=== PATIENT | female | born 1980 | race Caucasian/White ===

== ENCOUNTER 2017-11-07 01:05 | Emergency (ER) | END 2017-11-07 04:59 | disposition home or self-care (01) ==

== ENCOUNTER 2018-06-21 19:30 | Outpatient (CLI) | payer OTHER ==
[~2018-06-21] VITALS: Ht 161.3 cm; Wt 77.6 kg
[~2018-06-21 19:30] MED LIST: CEPH-443 PO; PREN1TAB79 PO
[2018-06-21 19:47] VITALS: Ht 161.3 cm; Wt 77.6 kg
[2018-06-21 19:49] VITALS: BP 119/57; PULSE 90; RESP 17
[2018-06-21] MEDS ORDERED: IRON1TAB78 PO (19:51)
--- NOTE | 2018-06-21 22:54 | TRIAGE ---
OB Triage Datetime Report Generated by CPN: 06/21/2018 22:54 Datetime: 06/21/2018 21:56 Stage of : OB Triage Labor Evaluation Frequency: irregular Monitor Mode: External Duration (sec)2399: 30-50 Quality: Mild Pattern: Normal: <= 5 Contractions in 10 Minutes Resting Tone [place]: Relaxed Heart Rate FHR Baseline Rate: 135 Monitor Mode: External US Variability: Moderate 6-25 bpm Accelerations: 15X15 Decelerations: None Category: Category I Datetime: 06/21/2018 21:15 Stage of : OB Triage Labor Evaluation Frequency: x3 Monitor Mode: External Duration (sec)2399: 60-70 Quality: Mild Pattern: Normal: <= 5 Contractions in 10 Minutes Resting Tone [place]: Relaxed Heart Rate FHR Baseline Rate: 135 Monitor Mode: External US Variability: Moderate 6-25 bpm Accelerations: 15X15 Decelerations: None Category: Category I Datetime: 06/21/2018 20:38 Time of Arrival: 06/21/2018 19:19 EGA: 36.3 Arrived By: Wheelchair Arrived From: Home Chief Complaint: CONTRACTIONS SINCE 06/20 @1730 Movement: Present Contractions: Irregular Time Contractions Began: 06/20/2018 17:30 Contractions: X2/40MINS Rupture of Membranes: Denies Vaginal Discharge: Denies Recent Sexual Intercouse: Denies Abdominal Trauma: Not Applicable Patient Complaints: Contractions; Fever; Other Additional Patient Complaints: BODY ACHES/FEVER/COLD Time Provider Notified: 06/21/2018 20:15 Provider Notified: DR. MENDEZ Initial Plan: EFM, CALL OB Datetime: 06/21/2018 20:15 Labor Evaluation Frequency: X2 Monitor Mode: External Duration (sec)2399: 100-120 Quality: Mild Pattern: Normal: <= 5 Contractions in 10 Minutes Resting Tone [place]: Relaxed Heart Rate FHR Baseline Rate: 135 Monitor Mode: External US Variability: Moderate 6-25 bpm Accelerations: 15X15 Decelerations: None Category: Category I Datetime: 06/21/2018 19:40 Stage of : OB Triage Maternal Assessment Level of Consciousness: Fully Conscious DTR's/Clonus: DTRs 2+; No Clonus Headache: Denies Blurred Vision: No Respiratory Effort: Unlabored; Regular Rhythm; Equal Expansion Breath Sounds, Left: Clear and Equal Breath Sounds, Right: Clear and Equal Nausea/Vomiting: Denies RUQ Epigastric Pain: Denies Lower Extremities Edema: None Degree: None Upper Extremities Edema: None Degree: None Facial Edema: None Temperature Route: Oral Fall Risk Assessment History of Falling: (0) No Secondary Diagnosis: (0) No Ambulatory Aid: (0) Bedrest/Nurse Assist IV Therapy: (0) No Gait: (0) Normal/Bedrest/Immobile Mental Status: (0) Oriented to Own Ability Fall Score: 0 Fall Risk Score Definition: No Risk: No action required Pain Assessment Pain Scale: 5 Pain Presence: Intermittent Pain Type: Contraction Pain Location: Abdomen; Back Pain Goal: 0 Pain Relief Measures: Comfort Measures Datetime: 06/21/2018 19:33 Monitor Mode: External Contraction Comments: APPLIED Monitor Mode: External US Comments: APPLIED
--- NOTE | 2018-06-21 23:20 | PN ---
Triage Information Date/Time 06/21/18 Reason for visit: Uterine contractions Weeks of Gestation 36w3d /Para Diabetes: none Hypertention: none Additional information bodyache and fever ,coughing Objective Vital Signs Date Temp Pulse Resp B/P (MAP) Pulse Ox O2 O2 Flow FiO2 Time Delivery Rate 06/21/18 98.5 90 17 119/57 Room Air 19:49 (77) Heart Rate: 150's Heart Rate Comments CAT I tracing Exam no VE only x2 uc in 40min Results/Medications Results 24 hrs Laboratory Tests Test 06/21/18 19:40 Urine Color YELLOW Urine Clarity CLEAR Urine pH 6.0 Urine Specific [place] 1.019 Urine Ketones TRACE A Urine Nitrite NEGATIVE Urine Bilirubin NEGATIVE Urine Urobilinogen 2+ H Urine Leukocyte Esterase NEGATIVE Urine Hemoglobin NEGATIVE Urine Glucose NEGATIVE Urine Total Protein NEGATIVE Imaging Results BPP 8/ PRAVEENA 13.1 Disposition: to ER for viral syndrome Assessment/Plan A IUP 36w3d R/o PTL NIL flu like syndrome P to ER for further evaluation for flu like syndrome FRANSISCA MENDEZ MD Jun 21, 2018 23:20
== END 2018-06-21 22:23 | disposition home or self-care (01) ==
LOC: OBT 19:30 → L-D 19:31 → OBT 22:23
PROVIDERS: ATTEND Obstetrics & Gynecology
DX: O99.513 Diseases of the respiratory system complicating pregnancy, third trimester (principal); J11.1 Influenza due to unidentified influenza virus with other respiratory manifestations; Z3A.36 36 weeks gestation of pregnancy
CPT/HCPCS: 76818; 81003; 87086; Z7500; G0463

== ENCOUNTER 2018-07-03 19:48 | Outpatient (CLI) | payer OTHER ==
[~2018-07-03] VITALS: Ht 160 cm; Wt 77.0 kg
[~2018-07-03 19:48] MED LIST changes: -CEPH-443 PO; +IRON1TAB78 PO
[2018-07-03 20:21] VITALS: BP 115/60; PULSE 76; RESP 16
--- NOTE | 2018-07-03 21:12 | PN ---
Triage Information Date/Time Reason for visit: Uterine contractions Weeks of Gestation 38 weeks /Para Diabetes: none Hypertention: none Objective Vital Signs Date Temp Pulse Resp B/P (MAP) Pulse Ox O2 O2 Flow FiO2 Time Delivery Rate 07/03/18 98.2 76 16 115/60 Room Air 20:21 (78) Heart Rate: 120's Heart Rate Comments Reactive Exam Cervix 1 cm Results/Medications Results 24 hrs Laboratory Tests Test 07/03/18 19:45 Urine Color YELLOW Urine Clarity CLEAR Urine pH 5.0 Urine Specific [place] 1.010 Urine Ketones 1+ H Urine Nitrite NEGATIVE Urine Bilirubin NEGATIVE Urine Urobilinogen NEGATIVE Urine Leukocyte Esterase NEGATIVE Urine Hemoglobin NEGATIVE Urine Glucose NEGATIVE Urine Total Protein NEGATIVE Disposition: Discharge Assessment/Plan Patient reports good movement Not in labor Follow up in clinic on07/04/2018. REGAN VÁSQUEZ MD Jul 03, 2018 21:12
--- NOTE | 2018-07-03 22:21 | TRIAGE ---
OB Triage Datetime Report Generated by CPN: 07/03/2018 22:21 Datetime: 07/03/2018 21:04 Stage of : OB Triage Labor Evaluation Frequency: 5-10 Monitor Mode: External Quality: Mild Pattern: Normal: <= 5 Contractions in 10 Minutes Resting Tone [place]: Relaxed Heart Rate FHR Baseline Rate: 130 Monitor Mode: External US FHR Baseline Changes: No Baseline Change Variability: Moderate 6-25 bpm Accelerations: 15X15 Decelerations: None Category: Category I Vaginal Exam Dilatation (cms): 1.0 Effacement (%): 50 Station: -2 Exam By: Dr Bragg Membrane Status: Intact Vaginal Bleeding: None Cervix, Consistency: Soft Cervix, Position: Posterior Presentation 'A': Cephalic Datetime: 07/03/2018 20:04 Stage of : OB Triage Maternal Assessment Level of Consciousness: Fully Conscious Headache: Denies Blurred Vision: No Respiratory Effort: Unlabored Nausea/Vomiting: Denies RUQ Epigastric Pain: Denies Facial Edema: None Monitor Mode: External Resting Tone [place]: Relaxed Heart Rate FHR Baseline Rate: 130 Monitor Mode: External US Pain Assessment Pain Scale: 6 Pain Presence: Intermittent Pain Type: Contraction Pain Location: Abdomen Datetime: 07/03/2018 20:00 Time of Arrival: 07/03/2018 19:35 EGA: 38.1 Arrived By: Ambulatory Arrived From: Home Chief Complaint: c/o irreg ucs Movement: Present Contractions: Irregular Time Contractions Began: 07/03/2018 13:00 Contractions: q6-10 Rupture of Membranes: Denies Vaginal Bleeding: None Vaginal Discharge: Denies Recent Sexual Intercouse: Denies Abdominal Trauma: Not Applicable Patient Complaints: Contractions Time Provider Notified: 07/03/2018 20:00 Provider Notified: Dr Bragg Initial Plan: EFM,UA,SVE Datetime: 06/21/2018 20:38 EGA: 36.3 Datetime: 06/21/2018 19:40 Fall Risk Assessment Fall Score: 0 Fall Risk Score Definition: No Risk: No action required
== END 2018-07-03 21:15 | disposition home or self-care (01) ==
LOC: OBT 19:48 → L-D 19:49 → OBT 21:15
PROVIDERS: ATTEND Obstetrics & Gynecology
DX: O47.1 False labor at or after 37 completed weeks of gestation (principal); Z3A.38 38 weeks gestation of pregnancy
CPT/HCPCS: 81003; Z7500; G0463

== ENCOUNTER 2018-07-06 13:21 | Outpatient (CLI) | payer OTHER ==
[~2018-07-06] VITALS: Ht 160 cm; Wt 77.0 kg
[2018-07-06 13:56] VITALS: BP 115/56; PULSE 75; RESP 18; Ht 160 cm; Wt 77.0 kg
[2018-07-06] MEDS ORDERED: ACETAMINOPHEN 325 MG TAB PO ONE (15:30)
--- NOTE | 2018-07-06 16:46 | TRIAGE ---
OB Triage Datetime Report Generated by CPN: 07/06/2018 16:45 Datetime: 07/06/2018 16:21 Stage of : OB Triage Vaginal Exam Dilatation (cms): 1.0 Effacement (%): 70 Station: -2 Exam By: S LUIS A Vaginal Bleeding: None Cervix, Consistency: Soft Cervix, Position: Posterior Presentation 'A': Cephalic Datetime: 07/06/2018 15:53 Labor Evaluation Frequency: 0 Monitor Mode: External Pattern: Normal: <= 5 Contractions in 10 Minutes Resting Tone [place]: Relaxed Heart Rate FHR Baseline Rate: 125 Monitor Mode: External US Variability: Moderate 6-25 bpm Accelerations: 10X10 Decelerations: None Category: Category I Pain Assessment Pain Scale: 2 Pain Presence: Constant Pain Type: Pressure Pain Location: Perineum Pain Goal: 3 Pain Relief Measures: Comfort Measures Datetime: 07/06/2018 15:23 Stage of : OB Triage Datetime: 07/06/2018 14:42 Labor Evaluation Frequency: 0 Monitor Mode: External Pattern: Normal: <= 5 Contractions in 10 Minutes Resting Tone [place]: Relaxed Heart Rate FHR Baseline Rate: 135 Monitor Mode: External US Variability: Moderate 6-25 bpm Accelerations: 10X10 Decelerations: None Category: Category I Pain Assessment Pain Scale: 6 Pain Presence: None/Denies Pain Type: N/A Pain Goal: 3 Pain Relief Measures: Comfort Measures Datetime: 07/06/2018 13:53 EGA: 38.4 Datetime: 07/06/2018 13:39 Stage of : OB Triage Assessment Type: Triage Maternal Assessment Level of Consciousness: Fully Conscious DTR's/Clonus: DTRs 2+; No Clonus Headache: Denies Blurred Vision: No Respiratory Effort: Unlabored; Regular Rhythm; Equal Expansion Breath Sounds, Left: Clear and Equal Breath Sounds, Right: Clear and Equal Nausea/Vomiting: Denies RUQ Epigastric Pain: Denies Facial Edema: None Temperature Route: Axillary Fall Risk Assessment History of Falling: (0) No Secondary Diagnosis: (0) No Ambulatory Aid: (0) Bedrest/Nurse Assist IV Therapy: (0) No Gait: (0) Normal/Bedrest/Immobile Mental Status: (0) Oriented to Own Ability Fall Score: 0 Fall Risk Score Definition: No Risk: No action required Labor Evaluation Frequency: 0 Monitor Mode: External Pattern: Normal: <= 5 Contractions in 10 Minutes Resting Tone [place]: Relaxed Heart Rate FHR Baseline Rate: 120 Monitor Mode: External US Variability: Moderate 6-25 bpm Decelerations: None Category: Category I Pain Assessment Pain Scale: 8 Pain Presence: Intermittent Pain Type: Cramping; Contraction Pain Location: Abdomen; Perineum Pain Goal: 3 Pain Relief Measures: Comfort Measures Datetime: 07/06/2018 13:37 Time of Arrival: 07/06/2018 13:14 EGA: 38.4 Arrived By: Ambulatory Arrived From: Dr. Dunn Chief Complaint: REFERRED FROM CLINIC FOR UC'S IN OFFICE, DENIES BLEEDING, OR LEAKING Movement: Decreased Contractions: Irregular Contractions: 5-7 Rupture of Membranes: Denies Vaginal Bleeding: None Vaginal Discharge: Denies Recent Sexual Intercouse: Denies Abdominal Trauma: Not Applicable Patient Complaints: Contractions; Cramping Time Provider Notified: 07/06/2018 16:21 Provider Notified: DR. MENDEZ Initial Plan: MONITOR, BPP Datetime: 07/03/2018 20:00 EGA: 38.1 Datetime: 06/21/2018 20:38 EGA: 36.3 Datetime: 06/21/2018 19:40 Fall Score: 0 Fall Risk Score Definition: No Risk: No action required
--- NOTE | 2018-07-06 17:08 | PN ---
Triage Information Date/Time 07/06/18 Reason for visit: Uterine contractions Weeks of Gestation 38w4d /Para A3 Diabetes: none Hypertention: none Additional information headache relieved with tylenol 650mg Objective Vital Signs Date Temp Pulse Resp B/P (MAP) Pulse Ox O2 O2 Flow FiO2 Time Delivery Rate 07/06/18 98.3 75 18 115/56 13:56 (75) Heart Rate: 140's Contractions: 6-10 Minutes Apart Exam VE /70/-3 same as previous exam Results/Medications Medications tylenol 650mg Imaging Results BPP 8/8 PRAVEENA 12.6 Disposition: Discharge Assessment/Plan A IUP 38w4d NIL headache resolved P discharge home with routine labor instructions FRANSISCA MENDEZ MD Jul 06, 2018 17:08
== END 2018-07-06 16:35 | disposition home or self-care (01) ==
LOC: OBT 13:21 → L-D 13:22 → OBT 16:35
PROVIDERS: ATTEND Obstetrics & Gynecology
DX: O62.9 Abnormality of forces of labor, unspecified (principal); O09.523 Supervision of elderly multigravida, third trimester; Z3A.38 38 weeks gestation of pregnancy
CPT/HCPCS: 76818; Z7500; Z7610; G0463

== ENCOUNTER 2018-07-11 09:10 | Inpatient (IN) | payer OTHER ==
[~2018-07-11] VITALS: Ht 160 cm; Wt 78.2 kg
[2018-07-11 09:19] VITALS: Ht 160 cm; Wt 78.2 kg
[2018-07-11 09:20] VITALS: BP 129/60
[2018-07-11] MEDS ORDERED: ONDANSETRON 4 MG INJ IV STA (10:22)
[2018-07-11] MEDS ORDERED: OXYTOCIN 30 UNITS/LR 500 ML IV PRN (10:30)
[2018-07-11] MEDS ORDERED: CARBOPROST 250 MCG INJ IM PRN (10:30)
[2018-07-11] MEDS ORDERED: OXYTOCIN 30 UNITS/LR 500 ML IV SCH ×2 (10:30)
[2018-07-11] MEDS ORDERED: MISOPROSTOL 200 MCG TAB PR PRN (10:30)
[2018-07-11] MEDS ORDERED: LIDOCAINE 1% (MPF) 30 ML INJ INJ PRN (10:30)
[2018-07-11] MEDS ORDERED: BUTORPHANOL 2 MG INJ IV PRN (10:30)
[2018-07-11] MEDS ORDERED: METHYLERGONOVINE 0.2 MG INJ IM PRN (10:30)
[2018-07-11] MEDS: LACTATED RINGER'S 1,000 ML IV SCH ×4 (10:47→19:43)
--- NOTE | 2018-07-11 10:47 | TRIAGE ---
OB Triage Datetime Report Generated by CPN: 07/11/2018 10:46 Datetime: 07/11/2018 10:45 Category: Category III Datetime: 07/11/2018 10:34 Stage of : OB Triage Labor Evaluation Frequency: 0 Monitor Mode: External Pattern: Normal: <= 5 Contractions in 10 Minutes Resting Tone [place]: Relaxed Heart Rate FHR Baseline Rate: 135 Monitor Mode: External US Variability: Moderate 6-25 bpm Accelerations: 15X15 Decelerations: None Category: Category I Datetime: 07/11/2018 09:48 Vaginal Exam Dilatation (cms): 3.0 Effacement (%): 50 Station: -2 Exam By: DR. LANCASTER Datetime: 07/11/2018 09:16 Time of Arrival: 07/11/2018 09:03 EGA: 39.2 Arrived By: Ambulatory Arrived From: Home Chief Complaint: ABD PAIN, VOMMITIING X3 THIS MORNING AT 0700 Movement: Present Contractions: Denies/Absent Rupture of Membranes: Denies Vaginal Bleeding: None Vaginal Discharge: Denies Recent Sexual Intercouse: Denies Abdominal Trauma: Not Applicable Patient Complaints: Vomiting Time Provider Notified: 07/11/2018 09:48 Provider Notified: DR. EDWARDS Initial Plan: EFM, CALL MD Datetime: 07/11/2018 09:13 Stage of : OB Triage Assessment Type: Triage Maternal Assessment Level of Consciousness: Fully Conscious DTR's/Clonus: DTRs 2+; No Clonus Headache: Denies Blurred Vision: No Respiratory Effort: Unlabored; Regular Rhythm; Equal Expansion Breath Sounds, Left: Clear and Equal Breath Sounds, Right: Clear and Equal Nausea/Vomiting: Denies RUQ Epigastric Pain: Denies Lower Extremities Edema: None Degree: None Upper Extremities Edema: None Degree: None Facial Edema: None Temperature Route: Oral Fall Risk Assessment History of Falling: (0) No Secondary Diagnosis: (0) No Ambulatory Aid: (0) Bedrest/Nurse Assist IV Therapy: (0) No Gait: (0) Normal/Bedrest/Immobile Mental Status: (0) Oriented to Own Ability Fall Score: 0 Fall Risk Score Definition: No Risk: No action required Monitor Mode: External (Annotations: INITIAL PLACEMENT ) Monitor Mode: External US (Annotations: INITIAL PLACMEMENT) Pain Assessment Pain Scale: 8 Pain Presence: Intermittent Pain Type: Ache Pain Location: Abdomen Pain Goal: 0 Pain Relief Measures: Comfort Measures Datetime: 07/06/2018 13:53 EGA: 38.4 Datetime: 07/06/2018 13:39 Fall Score: 0 Fall Risk Score Definition: No Risk: No action required Datetime: 07/06/2018 13:37 EGA: 38.4 Datetime: 07/03/2018 20:00 EGA: 38.1 Datetime: 06/21/2018 20:38 EGA: 36.3 Datetime: 06/21/2018 19:40 Fall Score: 0 Fall Risk Score Definition: No Risk: No action required
[2018-07-11] MEDS ORDERED: MISOPROSTOL 50 MCG CAPSULE PO ONE (11:00)
--- NOTE | 2018-07-11 17:57 | PREAC ---
Date/Time of Note Date/Time of Note DATE: 07/11/18 TIME: 17:48 Anesthesia Eval and Record Evaluation Time Pre-Procedure Interview DATE: 07/11/18 TIME: 17:48 Age 38 Sex female NPO: 8 hrs Preoperative diagnosis labor pain Planned procedure epidural Past Medical History Past Medical History: Includes : Gestational age: (38.4) Surgery & Anesthesia Issues No known issue Meds Anticoagulation: No Beta Mikala within 24 hr: No Reason Beta Mikala not given: Pt. not on B-Mikala Reported Medications Iron,Carbonyl/Vit C/Vit B12/Fa (IRON 100 PLUS TABLET) 1 Each Tablet, 1 EACH PO, TAB 06/21/18 Vit W-Ca,Fe,FA(<1 mg) ( Vitamins) 1 Each Tablet, 1 EACH PO, TAB 09/09/15 Current Medications Lactated Ringer's 1,000 ml @ 125 mls/hr Q8H IV Last administered on 07/11/18at 14:00; Admin Dose 125 MLS/HR; Start 07/11/18 at 10:22 Butorphanol Tartrate (Stadol) 2 mg Q2H PRN IV .PAIN; Start 07/11/18 at 10:30 Lidocaine (Xylocaine 1% (Mpf)) 30 ml ONCE PRN INJ .EPISIOTOMY; Start 07/11/18 at 10:30 Oxytocin/Lactated Ringer's 500 ml @ 500 mls/hr ONCE POST IV ; Start 07/11/18 at 10:30 Oxytocin/Lactated Ringer's 500 ml @ 125 mls/hr POST IV ; Start 07/11/18 at 10:30 Oxytocin/Lactated Ringer's 500 ml @ 0 mls/hr ONCE PRN IV .VAGINAL BLEEDING; Start 07/11/18 at 10:30 Methylergonovine Maleate (Methergine) 0.2 mg ONCE PRN IM .VAGINAL BLEEDING; Start 07/11/18 at 10:30 Carboprost Tromethamine (Hemabate) 250 mcg ONCE PRN IM .VAGINAL BLEEDING; Start 07/11/18 at 10:30 Misoprostol (Cytotec) 1,000 mcg ONCE PRN [place] .VAGINAL BLEEDING; Start 07/11/18 at 10:30 Meds reviewed: Yes Allergies Coded Allergies: Penicillins (Verified Allergy, Unknown, swelling, 07/03/18) aspirin (Verified Allergy, Unknown, rash, 07/03/18) Allergies Reviewed: Yes Labs/Studies Labs Reviewed: Reviewed by anesthesiologist Result Diagram: 07/11/18 1036 Laboratory Tests 07/11/18 10:36 Blood Bank Test 07/11/18 10:36 Antibody Screen NEGATIVE Blood Type O NEGATIVE Rh Immune Globulin Candidate NO test: Positive Studies: ECG (n/a), CXR (n/a) Pre-procedure Exam Last vitals Vital Signs Date Temp Pulse Resp B/P (MAP) Pulse Ox O2 O2 Flow FiO2 Time Delivery Rate 07/11/18 98.0 129/60 09:20 (83) Airway: Adequate mouth opening Mallampati: Mallampati I Teeth: Normal Lung: Normal Heart: Normal ASA Physical Status ASA physical status: 2 Emergency: None Planned Anesthetic Neuraxial: Epidural Pre-operative Attestations Prior to commencing anesthesia and surgery, the patient was re-evaluated, there was verification of: *The patient's identity *The results of appropriate recent lab work and preoperative vital signs *The above evaluation not changing prior to induction *Anesthetic plan, risk benefits, alternative and complications discussed with patient/family; questions answered; patient/family understands, accepts and wishes to proceed. JONY BROWN MD Jul 11, 2018 17:57
[2018-07-11] MEDS ORDERED: FENTAnyl 2MCG/ML-ROPIV 0.2% 100 ML ONE (18:41)
--- NOTE | 2018-07-11 21:46 | HP ---
Date/Time of Note Date/Time of Note DATE: 07/11/18 TIME: 21:43 OB - History Hx of Present Free Text/Dictation 38-year-old 9 para 5035 with single intrauterine at 39 weeks and 2 days with a RAUL of 07/16/2018 complaining of lower abdominal pain and vomiting. She states good movement. She denies shortness of breath, chest pain, headache, visual changes, vaginal bleeding or LOF. Chief Complaint: Lower abdominal pain and vomiting Estimated Due Date: Jul 16, 2018 : 9 Para: 5 Spontaneous : 3 Therapeutic : 0 Care: Good Care Ultrasounds: Normal mid trimester US Obstetrical Complications: None Medical Complications: None Past Family/Social History * Past Medical, Surgical, Family and Obstetric Histories reviewed from chart. Blood Type: O- Rubella: immune RPR/VDRL: Negative GBS Status: Negative HBsAG: Negative OB Admission Exam Vital Signs Vital Signs Vital Signs Date Temp Pulse Resp B/P (MAP) Pulse Ox O2 O2 Flow FiO2 Time Delivery Rate 07/11/18 98.0 129/60 09:20 (83) Physical Exam HEENT: WNL Heart: Rhythm Normal Lungs: Clear Abdomen: WNL Extremities: Normal Reflexes: Normal Cervical Dilatation: 1cm Effacement: 50% Station: -3 Membranes: Intact Heart Rate: 130's Accelerations: Accelerations Present Decelerations: No Decelerations Varibility: Moderate Contractions on Admission: >10 Minutes Apart Last 72 hours Lab Results CBC & BMP 07/11/18 10:36 OB Assessment/Plan Other plan: 38 years old 9 para 5035 at 39 weeks and 2 days with lower abdominal pain and vomiting - FHR: No sign of metabolic acidosis- Category I - Continuous EFM, toco - CBC, blood type and screen - Analgesia options with R/B/A discussed in detail with patient - Epidural per patient request - Please see the orders - O Neg/Rubella: Immune - GBS: Negative Admission, procedures, expectations, risks and possible complications have been discussed in detail with the patient. Risk of vaginal delivery including but not limited to bleeding, infection, cervical laceration, placental retention, injury to fetus, blood transfusion, blood transfusion related infection, risk of anesthesia, adhesion, cervical laceration, episiotomy/laceration, possible delivery with risk of bleeding, infection, injury to other organs (bowel, bladder, ureter, vessels, nerves), injury to fetus, blood transfusion, blood transfusion related infection, risk of anesthesia, scar and hernia formation, needs for future , removal of uterus or any other indicated surgery discussed with the patient. She expressed understanding and repeats the risks. All of her questions were answered. She signed the informed consent. PHYSICIAN'S VERIFICATION OF INFORMED CONSENT The patient was counseled regarding the procedure, its indications, risks, potential complications and alternatives and any questions were answered. Consent was obtained. PLANNED PROCEDURE/TREATMENT: Vaginal delivery, episiotomy, repair of laceration possible delivery YAKOV EDWARDS Jul 11, 2018 21:46
--- NOTE | 2018-07-11 21:49 | LDN ---
Date/Time of Note Date/Time of Note DATE: 07/11/18 TIME: 21:46 Delivery Summary 38-year-old single intrauterine at 39 weeks and 2 days delivered a viable male over 1cm first-degree laceration at fourchette. Nose and mouth suctioned. Rest of body delivered. Cord clamped and cut after stopping pulsation. Placenta delivered intact and spontaneously with three- vessel cord. Laceration repaired with 3-0 chromic SH needle. Patient tolerated procedure well. Time of delivery 21:13 Weight 3240 g - 7 pound 2 ounces Height 20 inches 9 at 1 minutes and 9 at 5 minutes EBL 300 mL Weeks of Gestation 39 weeks and 2 days Placenta Delivered: Spontaneously Meconium: none Episiotomy: No Estimated blood loss: 300 Sponge & Needle done & correct: Yes All needle counts correct: Yes Any foreign bodies felt in the: No Delivery Information Sex Infant Sex: male Apgars 1 Minute: 9 5 Minute: 9 10 Minute: 10 Suctioning Nose & mouth suctioned at miche[place]: Yes Umbilical Cord Umbilical cord with: 3 Vessels Cord presentations: no nuchal cord Cord Blood was obtained: Yes Mother & Baby Disposition Disposition Mom & Baby to Maternity; Good: Yes YAKOV EDWARDS Jul 11, 2018 21:49
[2018-07-11 23:25] VITALS: BP 122/54; PULSE 78; RESP 18
[2018-07-11] MEDS ORDERED: LACTATED RINGER'S 1,000 ML IV* SCH (23:50)
[2018-07-11] MEDS ORDERED: DEXTROSE 5%-LR 1,000 ML IV SCH (23:50)
[2018-07-12] MEDS ORDERED: SENNA/DOCUSATE NA (8.6MG/50MG) TAB PO PRN
[2018-07-12] MEDS ORDERED: METHYLERGONOVINE 0.2 MG INJ IM PRN
[2018-07-12] MEDS ORDERED: ACETAMINOPHEN 325 MG TAB PO PRN
[2018-07-12] MEDS ORDERED: OXYTOCIN 30 UNITS/LR 500 ML IV PRN
[2018-07-12] MEDS ORDERED: CARBOPROST 250 MCG INJ IM PRN
[2018-07-12] MEDS ORDERED: DIPHENHYDRAMINE 50 MG INJ IV PRN
[2018-07-12] MEDS ORDERED: DIBUCAINE 1% 30 GM OINT TOP PRN
[2018-07-12] MEDS ORDERED: OXYCODONE/ASPIRIN (4.88/325) TAB PO PRN
[2018-07-12] MEDS ORDERED: MISOPROSTOL 200 MCG TAB PR PRN
[2018-07-12] MEDS ORDERED: ZOLPIDEM 5 MG TAB PO PRN
[2018-07-12] MEDS ORDERED: ONDANSETRON 4 MG INJ IV PRN
[2018-07-12] MEDS ORDERED: WITCH HAZEL/GLYCERIN PAD PR PRN
[2018-07-12] MEDS ORDERED: BENZOCAINE 20% 56 ML SPRAY TOP PRN
[2018-07-12] MEDS ORDERED: LANOLIN HPA 1 PKT TOP PRN
[2018-07-12] MEDS: IBUPROFEN 600 MG TAB PO SCH ×5 (00:14→23:36)
[2018-07-12 00:25] VITALS: BP 115/49; PULSE 75; RESP 19
[2018-07-12 04:00] VITALS: BP 101/49; PULSE 76; RESP 18
[2018-07-12 07:30] VITALS: BP 114/52; PULSE 72; RESP 16
--- NOTE | 2018-07-12 10:15 | PN ---
Date/Time of Note Date/Time of Note DATE: 07/12/18 TIME: 10:13 OB Subjective Subjective Subjective PPD# 1 Patient is doing well. She denies nausea, vomiting, shortness of breath, chest pain, headache. She has been ambulating without difficulty, tolerating regular diet. Pain is well controlled on current medications OB Objective Objective Objective VS - Last 72 Hours, by Label Date Temp Pulse Resp B/P (MAP) Pulse Ox O2 O2 Flow FiO2 Time Delivery Rate 07/12/18 98.2 72 16 114/52 Room Air 07:30 (72) 07/12/18 98.6 76 18 101/49 Room Air 04:00 (66) 07/12/18 98.9 75 19 115/49 Room Air 00:25 (71) 07/11/18 98.2 78 18 122/54 Room Air 23:25 (76) 07/11/18 98.0 129/60 09:20 (83) General: AAO X 3, comfortable, NAD, appropriate mood and affect. ABD: +BS. Soft, non-tender. Uterus 2 cm below umbilicus Flank: No CVA tenderness (B/L) LE: Mild edema. No clubbing, cyanosis, thigh or calf tenderness (B/L). Homans 'sign is negative OB Assessment/Plan Other plan: 38-year-old s/p normal vaginal delivery at 39 weeks and 2 days. PPD#1 - AF, VSS - Contraception methods with R/B/A/FR discussed - Continue care - Discharge home tomorrow - Rx and instruction given - Follow up in 2 and 6 weeks at clinic YAKOV EDWARDS Jul 12, 2018 10:15
--- NOTE | 2018-07-12 10:16 | DS ---
Date/Time of Note Date/Time of Note DATE: 07/12/18 TIME: 10:15 Obstetrical Discharge Record Final Diagnosis Final Diagnosis: Term delivered Other Final Diagnosis 38-year-old s/p normal vaginal delivery at 39 weeks and 2 days. PPD#1. course was unremarkable. She is ambulating and tolerating regular diet. She is voiding without difficulty. Pain is controlled on current medication. - AF, VSS - Contraception methods with R/B/A/FR discussed - Continue care - Discharge home tomorrow - Rx and instruction given - Follow up in 2 and 6 weeks at clinic Complications Augmentation: Yes Condition on Discharge Physical Assessment Voiding: Yes Bowel Movement: Yes Breast: Soft, non-tender Fundus: Firm Calf Tenderness: No Patient Condition: Stable YAKOV EDWARDS Jul 12, 2018 10:16
[2018-07-12 11:57] VITALS: BP 118/62; PULSE 72; RESP 20
[2018-07-12 15:35] VITALS: BP 119/58; PULSE 75; RESP 18
[2018-07-12 19:40] VITALS: BP 107/64; PULSE 78; RESP 19
[2018-07-13 05:30] VITALS: BP 119/62; PULSE 67; RESP 19
[2018-07-13] MEDS: IBUPROFEN 600 MG TAB PO SCH ×2 (05:35→12:10)
[2018-07-13 08:00] VITALS: BP 109/59; PULSE 73; RESP 18
[2018-07-13] MEDS ORDERED: MEASLES,MUMPS,RUBELLA VACCINE INJ SC* ONE (09:00)
[2018-07-13] MEDS ORDERED: DIPHTH/TET/ACEL PERTUSS (ADULT) 0.5 ML VIAL IM* ONE (09:00)
--- NOTE | 2018-07-13 17:26 | PAC ---
Date/Time of Note Date/Time of Note DATE: 07/13/18 TIME: 17:26 Post-Anesthesia Notes Post-Anesthesia Note Last documented vital signs Vital Signs Date Temp Pulse Resp B/P (MAP) Pulse Ox O2 O2 Flow FiO2 Time Delivery Rate 07/13/18 98.0 73 18 109/59 Room Air 08:00 (76) Activity: WNL Respiratory function: WNL Cardiovascular function: WNL Mental status: Baseline Pain reasonably controlled: Yes Hydration appropriate: Yes Nausea/Vomiting absent: No JONY BROWN MD Jul 13, 2018 17:26
--- NOTE | 2018-07-16 11:26 | DELSUM ---
Delivery Summary A-C Datetime Report Generated by CPN: 07/16/2018 11:20 DELIVERY PERSONNEL Redevelopment Manager: Kashman, Heidi MATERNAL INFORMATION Delivery Anesthesia: Epidural Medications in Delivery: Pitocin, Methergine Delivery QBL (ml): 300 Placenta Cultured: No Maternal Complications: None LABOR SUMMARY EDC: 07/16/2018 00:00 No. Babies in Womb: 1 Attempted: No Labor Anesthesia: Epidural LABOR INFORMATION Reason for Induction: Other Onset of Labor: 07/11/2018 13:39 Complete Dilatation: 07/11/2018 20:09 Cervical Ripening Agents: Cytotec @ Oxytocin: N/A Group B Beta Strep: Negative Antibiotics # of Doses: 0 Steroids Given: None Reason Steroids Not Administered: Not Applicable MEMBRANES Membranes Rupture Method: Artificial Rupture of Membranes: 07/11/2018 20:08 Length of Rupture (hr): 1.08 Amniotic Fluid Color: Clear Amniotic Fluid Amount: Moderate Amniotic Fluid Odor: None STAGES OF LABOR Stage 1 hr: 6 Stage 1 min: 30 Stage 2 hr: 1 Stage 2 min: 4 Stage 3 hr: 0 Stage 3 min: 3 Total Time in Labor hr: 7 Total Time in Labor min: 37 VAGINAL DELIVERY Episiotomy: None Laceration Extension: First Degree Laceration Type: Perineal Laceration Repair: Not Applicable Initial Vag Sponge Count: 10 Final Vag Sponge Count: 10 Initial Vag Sharps Count: 1 Final Vag Sharps Count: 2 Sponge Count Correct: Yes; Vaginal Sweep Performed Sharps Count Correct: Yes CSECTION DELIVERY CSection Incision: Lower Uterine Transverse BABY A INFORMATION Delivery Date/Time: 07/11/2018 21:13 Method of Delivery: Vaginal Born in Route : No : N/A Forceps: N/A Vacuum Extraction: N/A Shoulder Dystocia : N/A SHOULDER DYSTOCIA BABY A Delivery Date/Time: 07/11/2018 21:13 PRESENTATION/POSITION BABY A Presentation: Cephalic Cephalic Presentation: Vertex Breech Presentation: N/A PLACENTA INFORMATION BABY A Placenta Delivery Time : 07/11/2018 21:16 Placenta Method of Delivery: Expressed Placenta Status: Delivered SCORES BABY A Heart Rate 1 min: >100 bpm Resp Effort 1 min: Good Cry Reflex Irritability 1 min: Cough/Sneeze/Pulls Away Muscle Tone 1 min: Active Motion Color 1 min: Body Winters, Extremit Blue Resuscitation Effort 1 min: Tactile Stimulation SCORE 1 MIN: 9 Heart Rate 5 min: >100 bpm Resp Effort 5 min: Good Cry Reflex Irritability 5 min: Cough/Sneeze/Pulls Away Muscle Tone 5 min: Active Motion Color 5 min: Body Winters, Extremit Blue Resuscitation Effort 5 min: N/A SCORE 5 MIN: 9 INFANT INFORMATION BABY A Gestational Age at Delivery: 39.2 Gestational Status: Full Term- 39- 40.6 Weeks Outcome : Liveborn Infant Condition : Stable Sex: Male IDENTIFICATION/MEDS BABY A ID Band Number: [id number] ID Band Location: Right Leg; Left Arm Sensor Applied: Yes Sensor Number: [id number] Sensor Location : Cord Clamp Vitamin K Given : Not Given Erythromycin Given: Not Given WEIGHT/LENGTH BABY A Birthweight (gm): 3240 Infant Weight (lb): 7 Weight (oz): 2 Length (in): 20.00 Infant Length (cm): 50.80 CORD INFORMATION BABY A No. Cord Vessels: 3 Nuchal Cord : N/A Cord Blood Taken: Yes Suction: Mouth; Nose ASSESSMENT BABY A Complications: None Physical Findings at Delivery: Within Normal Limits Infant Respirations: Appears Normal Right Of Way Man/ALS Called : No Care By: ULYSSES Lundy Transferred To: Remains with Mother
== END 2018-07-13 15:33 | disposition home or self-care (01) | DRG 807 ==
LOC: OBT 09:10 → L-D 09:11 → OBT 10:15 → PP1 23:24
PROVIDERS: ADMIT Obstetrics & Gynecology; ATTEND Obstetrics & Gynecology
PROC: 10E0XZZ Delivery of Products of Conception, External Approach (ICD-10-PCS; principal; 2018-07-11)
PROC: 0HQ9XZZ Repair Perineum Skin, External Approach (ICD-10-PCS; 2018-07-11)
PROC: 4A1HXCZ Monitoring of Products of Conception, Cardiac Rate, External Approach (ICD-10-PCS; 2018-07-11)
DX: O70.0 First degree perineal laceration during delivery (principal); Z37.0 Single live birth; Z3A.39 39 weeks gestation of pregnancy; Z88.0 Allergy status to penicillin
CPT/HCPCS: 62319; 76815; 81001; 85025; 85610; 85730; 86592; 86850; 86900; 86901; 87340; G0463; J2210; J2590; J3010; J7120; J7121

== ENCOUNTER 2018-07-30 21:07 | Emergency (ER) | payer OTHER ==
[~2018-07-30] VITALS: Ht 160 cm; Wt 71.4 kg
[2018-07-30 21:20] VITALS: Ht 160 cm; Wt 71.4 kg
[2018-07-31] MEDS ORDERED: SOD CHLORIDE 0.9% 1,000 ML IV STA (00:03)
[2018-07-31] MEDS ORDERED: ACETAMINOPHEN 500 MG TAB PO STA (00:03)
[2018-07-31] MEDS ORDERED: ACET500C5 PO (03:25)
--- NOTE | 2018-07-31 03:26 | ERD ---
ER Documentation Chief Complaint Chief Complaint fever and headache since 2pm today. +vomiting. HPI Patient is a 38-year-old female, G6, P6, who presents the ER for concerns of fevers, headache, generalized body aches since 2 PM today. Patient describes her pain to be throughout her head. Patient denied any blurry vision or photo phobia. Patient states she does have a mild dry cough. She denies abdominal pain or vomiting. Denies any neck pain or neck stiffness. Please note extensive triage note. Of note, patient gave to her child vaginally approximately 20 days ago. Patient reports occasional vaginal spotting. She denies any large amounts of blood passage. Patient does report intermittent pelvic pain. Patient denies any dysuria, frequency, urgency. Patient does not have sick contacts. Patient is and states that she does not which medications she can take. Patient denies breast pain, redness or discharge. Patient denies history of preeclampsia. OBGYN = Dr. Elder, [facility]. ROS All systems reviewed and are negative except as per history of present illness. Medications Home Meds Active Scripts Acetaminophen* (Tylophen*) 500 Mg Capsule, 1 CAP PO Q6H PRN for PAIN AND OR ELEVATED TEMP, #20 CAP Prov:SOLO PINEDA PA-C 07/31/18 Reported Medications Iron,Carbonyl/Vit C/Vit B12/Fa (IRON 100 PLUS TABLET) 1 Each Tablet, 1 EACH PO, TAB 06/21/18 Vit W-Ca,Fe,FA(<1 mg) ( Vitamins) 1 Each Tablet, 1 EACH PO, TAB 09/09/15 Allergies Allergies: Coded Allergies: Penicillins (Verified Allergy, Unknown, swelling, 07/03/18) aspirin (Verified Allergy, Unknown, rash, 07/03/18) PMhx/Soc Medical and Surgical Hx: pt denies Medical Hx, pt denies Surgical Hx History of Surgery: No Anesthesia Reaction: No Hx Neurological Disorder: No Hx Respiratory Disorders: No Hx Cardiac Disorders: No Hx Psychiatric Problems: No Hx Miscellaneous Medical Probl: No Hx Alcohol Use: No Hx Substance Use: No Hx Tobacco Use: No Smoking Status: Never smoker FmHx Family History: No diabetes Physical Exam Vitals Vital Signs Date Temp Pulse Resp B/P (MAP) Pulse Ox O2 O2 Flow FiO2 Time Delivery Rate 07/31/18 98.2 83 18 105/50 99 Room Air 03:39 (68) 07/30/18 101.3 108 16 117/57 100 21:20 (77) Physical Exam GENERAL: Well-developed, well-nourished female. Appears in no acute distress. HEAD: Normocephalic, atraumatic. No deformities or ecchymosis. EYE: Pupils equal, round, and reactive to light. EOMs intact. No conjunctival erythema. No eye discharge. ENT: External ear without any masses or tenderness. Auditory canals clear bilaterally. TM visualized bilaterally, non-erythematous, non-bulging. Nasal mucosa pink with no discharge. Oropharynx is pink without any tonsillar erythema or exudates. No uvula deviation. No kissing tonsils. NECK: Supple. No meningismus. Normal ROM of the neck. LUNG: Clear to auscultation bilaterally. No rhonchi, wheezing, rales or coarse breath sounds. HEART: Regular rate and rhythm. No murmurs, rubs or gallops. ABDOMEN: Soft, nondistended. Tender to palpation in the suprapubic region. No rebound tenderness, no guarding. (-) McBurney's point tenderness. No CVA tenderness. FEMALE GENITALIA: Exam was completed with a mathematics instructor present. Normal external female genitalia. Normal vaginal mucosal without lesions. Cervix visualized, faint brown/ blood tinged discharge noted. Negative CMT. EXTREMITES: Equal pulses bilaterally. No peripheral clubbing, cyanosis or edema. No unilateral leg swelling. NEUROLOGIC: Alert and oriented to person, place and time. Moving all four extremities. 5/5 strength in all extremities. Normal speech. Steady gait. Negative Brudzinski sign. Negative Kernig sign. SKIN: Normal color. Warm and dry. No rashes or lesions. Result Diagram: 07/31/18 0023 07/31/18 0023 Results 24 hrs Laboratory Tests Test 07/31/18 00:23 07/31/18 02:24 White Blood Count 12.3 10^3/ul Red Blood Count 4.16 10^6/ul Hemoglobin 11.6 g/dl Hematocrit 36.1 % Mean Corpuscular Volume 86.8 fl Mean Corpuscular Hemoglobin 27.9 pg Mean Corpuscular Hemoglobin Concent 32.1 g/dl Red Cell Distribution Width 18.2 % Platelet Count 222 10^3/UL Mean Platelet Volume 9.4 fl Immature Granulocytes % 0.700 % Neutrophils % 87.7 % Lymphocytes % 8.4 % Monocytes % 2.8 % Eosinophils % 0.2 % Basophils % 0.2 % Nucleated Red Blood Cells % 0.0 /100WBC Immature Granulocytes # 0.090 10^3/ul Neutrophils # 10.8 10^3/ul Lymphocytes # 1.0 10^3/ul Monocytes # 0.4 10^3/ul Eosinophils # 0.0 10^3/ul Basophils # 0.0 10^3/ul Nucleated Red Blood Cells # 0.0 10^3/ul Urine Color YELLOW Urine Clarity CLEAR Urine pH 5.0 Urine Specific [place] 1.026 Urine Ketones NEGATIVE mg/dL Urine Nitrite NEGATIVE mg/dL Urine Bilirubin NEGATIVE mg/dL Urine Urobilinogen NEGATIVE mg/dL Urine Leukocyte Esterase TRACE Terrie/ul Urine Microscopic RBC 3 /HPF Urine Microscopic WBC 3 /HPF Urine Mucus FEW /HPF Urine Hemoglobin NEGATIVE mg/dL Urine Glucose NEGATIVE mg/dL Urine Total Protein NEGATIVE mg/dl Sodium Level 137 mmol/L Potassium Level 4.1 mmol/L Chloride Level 103 mmol/L Carbon Dioxide Level 23 mmol/L Anion Gap 11 Blood Urea Nitrogen 18 mg/dl Creatinine 0.50 mg/dl Est Glomerular Filtrat Rate mL/min > 60 mL/min Glucose Level 110 mg/dl Lactic Acid Level 1.2 mmol/L Calcium Level 9.1 mg/dl Total Bilirubin 1.1 mg/dl Direct Bilirubin 0.00 mg/dl Indirect Bilirubin 1.1 mg/dl Aspartate Amino Transf (AST/SGOT) 21 IU/L Alanine Aminotransferase (ALT/SGPT) 25 IU/L Alkaline Phosphatase 121 IU/L Total Protein 7.0 g/dl Albumin 3.9 g/dl Globulin 3.10 g/dl Albumin/Globulin Ratio 1.25 Lipase 73 U/L Bedside Urine pH (LAB) 5.5 Bedside Urine Protein (LAB) Negative Bedside Urine Glucose (UA) Negative Bedside Urine Ketones (LAB) Negative Bedside Urine Blood Negative Bedside Urine Nitrite (LAB) Negative Bedside Urine Leukocyte Esterase (L Trace Current Medications Medications Dose Sig/Dar Start Time Status Last (Trade) Ordered Route PRN Stop Time Admin Dose Reason Admin Sodium 1,000 ml @ Q1H STAT 07/31/18 DC 07/31/18 Chloride 1,000 mls/hr IV 00:03 07/31/18 00:22 01:02 1,000 mg ONCE STAT 07/31/18 DC 07/31/18 Acetaminophen PO 00:03 07/31/18 00:22 (Tylenol 00:06 Tab) Procedures/MDM ED COURSE: The patient was stable throughout ED course. I kept the patient and/or family informed of laboratory and diagnostic imaging results throughout the ED course. DIAGNOSTIC IMAGING: Read by radiologist. Patient: KESHIA GOLDSMITH : 1980 Age: 38 Sex: F MR #: [id number] DOS: 07/31/18 0012 Ordering MD: SOLO PINEDA PA-C Location: [facility] Room/Bed: PROCEDURE: Pelvic ultrasound. CLINICAL INDICATION: Vaginal delivery 07/11/2018. Vaginal bleeding with passage of clots for 1 day. Evaluate for retained products of conception. TECHNIQUE: Silverio scale, color doppler, spectral doppler ultrasound of the pelvis was performed with transabdominal transducers. COMPARISON: None. FINDINGS: Uterus: Uterus measures 5.9 x 6.2 x 8.3 cm. Retroverted. Normal heterogeneous echotexture. No leiomyomas identified. Endometrium: Complex fluid filled endometrial cavity containing avascular echogenic debris, likely hemorrhage. No evidence of retained products of conception. Endometrial cavity diameter 22.1 mm including the complex fluid. Cervix: Not well visualized. Transabdominal images.. Right Ovary: 4.3 x 2.2 x 2.7 cm. Normal appearance.. Flow demonstrated color and Doppler. Left Ovary: Not visualized. Free fluid: None. IMPRESSION: 1. Complex fluid containing endometrial cavity with echogenic avascular material representing hemorrhage. 2. No evidence of retained products of conception. 3. Left ovary not visualized. RPTAT: [facility] Physician Jagdeep Date Time Electronically viewed and signed by Physician Jagdeep on 07/31/2018 02:12 RS/ CC: SOLO PINEDA PA-C [id number] PROCEDURES: None. MEDICATIONS GIVEN: IV fluids, Tylenol Patient tolerated medication well with no adverse reactions. Patient reported improvement in pain. MEDICAL DECISION MAKING: Patient is a 38-year-old female, G6, P3, presents the ER for concerns of fevers, headache, general body aches which started at 2 PM today. Vital signs were reviewed. Patient was febrile initial presentation with a temperature of 101.3. Pulse was 108. Blood pressure was within normal limits. IV line was established. Blood work was obtained. CBC showed WBC count of 12.3, hemoglobin 11.6 mm hematocrit of 36.1. CMP showed no evidence of electrolyte abnormalities, severe acidosis, alkalosis, renal failure, or liver disease. Lipase showed no evidence of acute pancreatitis. Initial lactic acid was noted to be 1.2. Low suspicion for sepsis. UA showed trace leukocyte esterase however patient denied any dysuria. I will defer treatment at this time as patient is asymptomatic. Flu swab was negative. Pelvic ultrasound showed 1. Complex fluid containing en dometrial cavity with echogenic avascular material representing hemorrhage. 2. No evidence of retained products of conception. 3. Left ovary not visualized. I did discuss ultrasound findings with the HEL[employer] P[employer] on-call Dr. Vieira who stated that it is normal for females to have bleeding up to 6 weeks post . Patient was advised to follow-up with her [facility] at the [facility]. Upon reexamination, patient stated that she was completely asymptomatic. Patient longer reported any pain after receiving Tylenol. At this time, patient's presentation is most consistent with a viral syndrome. Low suspicion for meningitis, peritonsillar abscess, otitis media, strep pharyngitis, mastitis, severe electrolyte abnormalities, acute abdomen, pneumonia, sepsis, UTI, pyelonephritis, acute hemorrhage, retained products of conception, preeclampsia. Patient was nontoxic, [id number] prior to discharge. PRESCRIPTION: Tylenol DISCHARGE: At this time, patient is stable for discharge and outpatient management. I have instructed the patient to follow-up with his/her primary care physician in 1-2 days. I have discussed with the patient the possibility of needing to see a specialist for further workup and imaging studies if symptoms persist. I have instructed the patient to promptly return to the ER for any new or worsening symptoms including increased pain, fever, nausea, vomiting, weakness or LOC. The patient and/or family expressed understanding of and agreement with this plan. All questions were answered. Home care instructions were provided. Disclaimer: Inadvertent spelling and grammatical errors are likely due to EHR/dictation software use and do not reflect on the overall quality of patient care. Also, please note that the electronic time recorded on this note does not necessarily reflect the actual time of the patient encounter. Departure Diagnosis: Primary Impression: Viral syndrome Additional Impression: Pelvic pain Condition: Fair Patient Instructions: Viral Syndrome (Adult) Referrals: [facility] YOU HAVE RECEIVED A MEDICAL SCREENING EXAM AND THE RESULTS INDICATE THAT YOU DO NOT HAVE A CONDITION THAT REQUIRES URGENT TREATMENT IN THE EMERGENCY DEPARTMENT. FURTHER EVALUATION AND TREATMENT OF YOUR CONDITION CAN WAIT UNTIL YOU ARE SEEN IN YOUR DOCTORS OFFICE WITHIN THE NEXT 1-2 DAYS. IT IS YOUR RESPONSIBILITY TO MAKE AN APPOINTMENT FOR FOLOW-UP CARE. IF YOU HAVE A PRIMARY DOCTOR --you should call your primary doctor and schedule an appointment IF YOU DO NOT HAVE A PRIMARY DOCTOR YOU CAN CALL OUR PHYSICIAN REFERRAL HOTLINE AT IF YOU CAN NOT AFFORD TO SEE A PHYSICIAN YOU CAN CHOSE FROM THE FOLLOWING [facility] [address] [facility] [address] [facility] [address] [facility] [address] [facility] [address] [facility]. [facility]. [address] [facility]. [facility] YOU HAVE RECEIVED A MEDICAL SCREENING EXAM AND THE RESULTS INDICATE THAT YOU DO NOT HAVE A CONDITION THAT REQUIRES URGENT TREATMENT IN THE EMERGENCY DEPARTMENT. FURTHER EVALUATION AND TREATMENT OF YOUR CONDITION CAN WAIT UNTIL YOU ARE SEEN IN YOUR DOCTORS OFFICE WITHIN THE NEXT 1-2 DAYS. IT IS YOUR RESPONSIBILITY TO MAKE AN APPOINTMENT FOR FOLOW-UP CARE. IF YOU HAVE A PRIMARY DOCTOR --you should call your primary doctor and schedule and appointment IF YOU DO NOT HAVE A PRIMARY DOCTOR YOU CAN CALL OUR PHYSICIAN REFERRAL HOTLINE AT . IF YOU CAN NOT AFFORD TO SEE A PHYSICIAN YOU CAN CHOSE FROM THE FOLLOWING [facility]: [facility] [address] [place] [address] [facility] [address] [place] [address] [facility] + [facility] [address] [place] [address] Additional Instructions: Follow-up with your [facility] [facility]ER for further management of your ongoing pelvic pain. Call your primary care doctor TOMORROW for an appointment during the next 1-2 days.See the doctor sooner or return here if your condition worsens before your appointment time. SOLO PINEDA PA-C Jul 31, 2018 03:26
[2018-07-31 03:39] VITALS: BP 105/50; PULSE 83; RESP 18
== END 2018-07-31 03:42 | disposition home or self-care (01) ==
LOC: FTE 21:07
DX: O98.53 Other viral diseases complicating the puerperium (principal); R10.2 Pelvic and perineal pain; B34.9 Viral infection, unspecified
CPT/HCPCS: 36415; 76856; 80053; 81001; 83605; 83690; 85025; 87400; 96360; 96361; J7030; Z7502; Z7610; 81003